=== PATIENT | male | born 1970 | race Two or more races ===

== ENCOUNTER 2019-06-25 10:21 | Emergency (ER) | payer OTHER ==
[2019-06-25] MEDS ORDERED: Ketorolac *IM* INJ* 60 MG/2 ML VIAL IM ONE (10:55)
--- NOTE | 2019-06-25 10:56 | ED ---
Lower Extremity - HPI Summary HPI Summary: This patient is a 49 year old male presenting to [facility] with a chief complaint of right ankle injury. The patient states he was playing soccer yesterday when he twisted the ankle. He states the injury did not cause him to call down. He states he took ibuprofen for the pain and iced the ankle. He states bruising of the ankle. Pt denies any fever, chills, erythema of eyes, sore throat, CP, SOB, cough, abdominal pain, N/V, dysuria, hematuria, myalgia, edema, rash, or dizziness. - History of Current Complaint Chief Complaint: EDExtremityLower Stated Complaint: RT ANKLE INJ PER PT Time Seen by Provider: 06/25/19 10:49 Hx Obtained From: Patient Mechanism Of Injury: Twisted Onset of Pain: Days Pain Intensity: 11 Pain Scale Used: 0-10 Numeric Associated Signs And Symptoms: Positive: Bruising - Allergies/Home Medications Allergies/Adverse Reactions: Allergies Allergy/AdvReac Type Severity Reaction Status Date / Time No Known Allergies Allergy Verified 02/05/14 18:26 Home Medications: Home Medications Ibuprofen TAB* [Advil TAB*] 200 mg PO Q6H PRN 06/25/19 [History Confirmed ] Naproxen TAB* [Naprosyn 250 mg TAB*] 500 mg PO Q8H PRN #30 tab 06/25/19 [Rx] PMH/Surg Hx/FS Hx/Imm Hx Endocrine/Hematology History: Denies: Hx Diabetes Cardiovascular History: Denies: Hx Hypertension, Hx Pacemaker/ICD Respiratory History: Denies: Hx Asthma Sensory History: Denies: Hx Hearing Aid Psychiatric History: Denies: Hx Panic Disorder - Immunization History Date of Tetanus Vaccine: States last year when he had a similar laceration Infectious Disease History: No Infectious Disease History: Denies: Traveled Outside the [place] in Last 30 Days - Family History Known Family History: Negative: Respiratory Disease - Social History Alcohol Use: None Substance Use Type: Reports: None Smoking Status (MU): Never Smoked Tobacco Review of Systems Negative: Fever, Chills Negative: Erythema Negative: Sore Throat Negative: Chest Pain Negative: Shortness Of Breath, Cough Negative: Abdominal Pain, Vomiting, Nausea Negative: dysuria, hematuria Positive: Other - Right ankle. Negative: Myalgia, Edema Positive: Bruising - Right ankle. Negative: Rash Neurological/Mental Status: Other - Neg: Dizziness All Other Systems Reviewed And Are Negative: No Physical Exam - Summary Physical Exam Summary: Constitutional: Well-developed, Well-nourished, Alert, Cooperative Skin: Warm, Dry HENT: Normocephalic; No Racoons eyes; No ocampo's sign; No abrasion; No contusion; No hemotympanum; No maxilla facial tenderness or instability; Dentition are smooth; No dental trauma; No trismus Eyes: EOM normal, PERRL Neck: Trachea is midline. No stridor; No JVD; No step off; No posterior cervical spine tenderness Cardio: Rhythm regular, rate normal Heart sounds normal; Intact distal pulses; The pedal pulses are 2+ and symmetric. Radial pulses are 2+ and symmetric. Pulmonary/Chest wall: Effort normal; Breath sounds normal; Equal chest rise; No flail segment; No rib tenderness; No sternal tenderness Abd: Soft, Appearance normal. No distension; No tenderness; No palpable pulsatile mass; No Cullens sign; No Aden-Turners sign Musculoskeletal: Full ROM and no tenderness at hips, shoulders, elbows and knees ; No joint swelling; No vertebral body tenderness; No paraspinal tenderness; No step off or deformity of the spine; Pelvis is stable to lateral compression and rock. Ecchymosis on the lateral aspect of the right ankle. Tenderness over the right lateral malleolus. Littlejohn test is negative. Neuro: Alert, Oriented x3, Strength 5/5 all extremities. : No blood at urethral meatus Psych: Mood and affect Normal Triage Information Reviewed: Yes Vital Signs On Initial Exam: Initial Vitals Temp Pulse Resp BP Pulse Ox 97.0 F 67 16 129/71 97 06/25/19 10:23 06/25/19 10:23 06/25/19 10:23 06/25/19 10:23 06/25/19 10:23 Vital Signs Reviewed: Yes Procedures - Sedation Patient Received Moderate/Deep Sedation with Procedure: No Diagnostics - Vital Signs Vital Signs Temp Pulse Resp BP Pulse Ox 06/25/19 10:23 97.0 F 67 16 129/71 97 - Laboratory Lab Statement: Any lab studies that have been ordered have been reviewed, and results considered in the medical decision making process. - Radiology Right ankle XR Radiology Interpretation Completed By: Radiologist Summary of Radiographic Findings: Soft tissue swelling without fracture. ED Provider has reviewed this report. Right foot XR Radiology Interpretation Completed By: Radiologist Summary of Radiographic Findings: No fracture of the right foot is noted. ED Provider has reviewed this report. Lower Extremity Course/Dx - Course Course Of Treatment: This patient is a 49 year old male presenting to [facility] with a chief complaint of right ankle injury. Physical exam reveals ecchymosis on the lateral aspect of the right ankle. Tenderness over the right lateral malleolus. Littlejohn test is negative. Right foot and ankle XRs were negative for fracture. Discussed the possibility of occult fracture with the patient. He was advised to be non-weight bearing for 2-3 days. He did not take any ibuprofen today so he should continue with NSAIDs around the clock. If he still has pain after 2-3 days he should be wearing a splint. He will be given an Orthopedics followup for 3-5 days. Plan for discharge was discussed with the patient and he understands and agrees with this plan. - Diagnoses Provider Diagnoses: Right ankle sprain Discharge ED - Sign-Out/Discharge Documenting (check all that apply): Patient Departure - Discharge - Discharge Plan Condition: Stable Disposition: HOME Prescriptions: Naproxen TAB* [Naprosyn 250 mg TAB*] 500 mg PO Q8H PRN #30 tab PRN Reason: Pain - Moderate To Severe Patient Education Materials: Ankle Sprain (ED) Forms: *Work Release Referrals: [facility] Orthopedic Services [Provider Group] - 3 Days Additional Instructions: Return to ED with new or worsening symptoms. Follow up with Orthopedics in 3-5 days. - Billing Disposition and Condition Condition: STABLE Disposition: Home - Attestation Statements Document Initiated by Gretta: Yes Documenting Scribe: Gavino Candelario Provider For Whom Gretta is Documenting (Include Credential): Duy Morataya MD Scribe Attestation: Gavino Goss scribed for Duy Morataya MD on 06/29/19 at 1048. Scribe Documentation Reviewed: Yes Provider Attestation: The documentation as recorded by the Gavino patel accurately reflects the service I personally performed and the decisions made by me, Duy Morataya MD Status of Scribe Document: Viewed
[2019-06-25 12:19] VITALS: BP 119/79
== END 2019-06-25 12:18 | disposition home or self-care (01) ==
LOC: ED 10:21
DX: S93.401A Sprain of unspecified ligament of right ankle, initial encounter (principal); X50.9XXA Other and unspecified overexertion or strenuous movements or postures, initial encounter; Y93.66 Activity, soccer; Y92.9 Unspecified place or not applicable
CPT/HCPCS: 96372; 99282; J1885